=== PATIENT | male | born 1980 | race African-American/Black ===

== ENCOUNTER 2017-04-24 19:34 | Emergency (ER) | payer SELFPAY ==
[~2017-04-24] VITALS: Ht 185.4 cm; Wt 74.8 kg
[2017-04-24 19:49] VITALS: BP 108/56
[2017-04-24 22:06] LABS: Urine Bacteria NONE SEEN /hpf (None Seen); Urine Blood Negative /uL (Negative); Urine Mucus FEW (None Seen); Urine Specific Gravity 1.032 (1.001-1.035); Urine WBC <1 /hpf (0 - 3)
== END 2017-04-24 21:51 | disposition home or self-care (01) ==
LOC: ER 19:34
DX: J03.90 Acute tonsillitis, unspecified (principal); F12.10 Cannabis abuse, uncomplicated
CPT/HCPCS: 81001

== ENCOUNTER 2017-04-30 10:45 | Emergency (ER) | payer SELFPAY ==
[~2017-04-30] VITALS: Ht 185.4 cm; Wt 77.1 kg
[2017-04-30 11:24] VITALS: BP 110/62
== END 2017-04-30 12:08 | disposition home or self-care (01) ==
LOC: ER 10:45
DX: S80.01XA Contusion of right knee, initial encounter (principal); F12.10 Cannabis abuse, uncomplicated; W22.8XXA Striking against or struck by other objects, initial encounter; Y93.89 Activity, other specified; Y99.8 Other external cause status; Y92.89 Other specified places as the place of occurrence of the external cause
CPT/HCPCS: 73562

== ENCOUNTER 2017-05-09 12:05 | Emergency (ER) | payer SELFPAY ==
[~2017-05-09] VITALS: Ht 185.4 cm; Wt 81.6 kg
[2017-05-09 16:20] VITALS: BP 120/52
== END 2017-05-09 18:33 | disposition home or self-care (01) ==
LOC: ER 12:05
DX: J02.9 Acute pharyngitis, unspecified (principal); M54.2 Cervicalgia; F17.210 Nicotine dependence, cigarettes, uncomplicated
CPT/HCPCS: 71046

== ENCOUNTER 2018-10-31 16:49 | Emergency (ER) | payer MEDICAID ==
[~2018-10-31] VITALS: Ht 185.4 cm; Wt 79.4 kg
[2018-10-31 18:28] VITALS: BP 135/64
[2018-10-31] MEDS ORDERED: methylPREDNISolone SOD SUCC 125 MG/2 ML VL IM ONE (19:15)
[2018-10-31] MEDS ORDERED: IBUPROFEN 600 MG TAB PO ONE (19:15)
== END 2018-10-31 20:00 | disposition home or self-care (01) ==
LOC: ER 16:53
DX: J06.9 Acute upper respiratory infection, unspecified (principal); R42 Dizziness and giddiness; R51 Headache; R19.7 Diarrhea, unspecified; F12.10 Cannabis abuse, uncomplicated; M54.2 Cervicalgia
CPT/HCPCS: 96372; 99283; J2930

== ENCOUNTER 2019-10-15 19:32 | Emergency (ER) | payer MEDICAID ==
[~2019-10-15] VITALS: Ht 185.4 cm; Wt 79.4 kg
[2019-10-15 21:46] VITALS: BP 119/62
== END 2019-10-16 02:45 | disposition home or self-care (01) ==
LOC: ER 19:32
DX: U07.1 COVID-19 (principal); J06.9 Acute upper respiratory infection, unspecified
CPT/HCPCS: 71045; 87070; 87804; 87880; 99284; U0003

== ENCOUNTER 2020-09-27 21:36 | Emergency (ER) | payer MEDICAID ==
[~2020-09-27] VITALS: Ht 185.4 cm; Wt 79.4 kg
[2020-09-27 22:36] LABS: Hematocrit 42.9 % (41.0-53.0); Mean Corpuscular Hemoglobin 32.5 pg (28.0-32.0); Mean Corpuscular Volume 92.9 fL (80.0-100.0); Platelet Count (auto) 275 10^3/uL (140-450); Red Blood Cells 4.62 10^6/uL (4.5-5.90); Red Cell Distribution Width 13.3 % (11.8-14.3); White Blood Cell 6.7 10^3/uL (4.4-10.8)
[2020-09-27 22:38] LABS: Band Neutrophils % (manual) 0; Basophils % (manual) 0 (0.0-2.0); Metamyelocytes % 0
[2020-09-27 22:39] LABS: Blast Cells 0; Myelocytes % 0; Promyelocytes % 0
[2020-09-27 22:54] LABS: Albumin 3.9 g/dL (3.4-5.0); Calcium 8.7 mg/dL (8.5-10.1); Potassium 3.8 mmol/L (3.5-5.1)
[2020-09-27 22:57] LABS: BUN/Creatinine Ratio 14.6; Bilirubin, Total 0.2 mg/dL (0.2-1.0); CRP High Sensitivity 0.74 mg/dL (< 0.3); Total Protein 8.4 g/dL (6.4-8.2)
[2020-09-27 23:31] LABS: Eosinophils % (manual) 2 (0-7); Lymphocytes % (manual) 41 (10.0-50.0); Monocytes % (manual) 5 (0-12); Reactive Lymphocytes 2
[2020-09-28] MEDS ORDERED: cefTRIAXone SOD 1,000 MG VL IM ONE (00:45)
[2020-09-28] MEDS ORDERED: KETOROLAC TROMETH 60MG/2ML VIAL IM ONE (00:45)
[2020-09-28 06:42] VITALS: BP 111/78
== END 2020-09-28 06:51 | disposition home or self-care (01) ==
LOC: ER 21:36
DX: L08.9 Local infection of the skin and subcutaneous tissue, unspecified (principal); F17.210 Nicotine dependence, cigarettes, uncomplicated
CPT/HCPCS: 36415; 73700; 80053; 85007; 85027; 85049; 85652; 86141; 96372; 99284; J0696; J1885

== ENCOUNTER 2021-03-02 16:04 | Emergency (ER) | payer MEDICAID ==
[~2021-03-02] VITALS: Ht 185.4 cm; Wt 83.9 kg
[2021-03-02 21:18] VITALS: BP 121/71
== END 2021-03-03 04:41 | disposition home or self-care (01) ==
LOC: ER 16:04
DX: J06.9 Acute upper respiratory infection, unspecified (principal); J02.9 Acute pharyngitis, unspecified; F17.210 Nicotine dependence, cigarettes, uncomplicated; F12.10 Cannabis abuse, uncomplicated; Z20.822 Contact with and (suspected) exposure to COVID-19
CPT/HCPCS: 36415; 71045; 87426

== ENCOUNTER 2021-03-22 01:46 | Emergency (ER) | payer MEDICAID ==
[~2021-03-22] VITALS: Ht 185.4 cm; Wt 81.6 kg
[2021-03-22 03:44] LABS: Amphetamine Screen, Urine NEGATIVE (NEGATIVE); Barbiturate Scree,Urine NEGATIVE (NEGATIVE); Benzodiazephine Screen, Urine NEGATIVE (NEGATIVE); Cannabinoid Screen, Urine POSITIVE (NEGATIVE); Cocaine Screen, Urine POSITIVE (NEGATIVE); Opiate Scree,Urine NEGATIVE (NEGATIVE); Phencyclidine Screen, Urine NEGATIVE (NEGATIVE)
[2021-03-22] MEDS ORDERED: MORPHINE SULFATE 4 MG/ML SYR/VIAL IV ONE (03:45)
[2021-03-22 03:53] LABS: Urine Bacteria NONE SEEN /hpf (None Seen); Urine Blood Negative /uL (Negative); Urine Hyaline Cast FEW /lpf (0 - 2); Urine Specific Gravity 1.006 (1.001-1.035); Urine WBC <1 /hpf (0 - 3)
[2021-03-22 04:28] LABS: Basophils # (auto) 0 10 ^3/uL (0-0.2); Basophils % (auto) 0.1 % (0.0-2.0); Eosinophils # (auto) 0 10 ^3/uL (0-0.8); Hematocrit 49.7 % (41.0-53.0); Hemoglobin 16.6 g/dL (13.5-17.5); Lymphocytes # (auto) 0.8 10 ^3/uL (0.4-5.4); Lymphocytes % (auto) 10.7 % (10.0-50.0); Mean Corpuscular Hemoglobin 31.2 pg (28.0-32.0); Mean Corpuscular Hgb Conc. 33.3 g/dL (32.0-36.0); Mean Corpuscular Volume 93.8 fL (80.0-100.0); Monocytes # (auto) 0.2 10 ^3/uL (0-1.3); Monocytes % (auto) 2.4 % (0.0-12.0); Neutrophils # (auto) 6.9 10 ^3/uL (1.6-8.6); Neutrophils % (auto) 86.8 % (37.0-80.0); Nucleated Red Blood Cells % 0.1 %; White Blood Cell 7.9 10^3/uL (4.4-10.8)
[2021-03-22 04:45] LABS: Alanine Aminotransferase 33 U/L (16-61); Albumin 4.3 g/dL (3.4-5.0); Anion Gap 13 (5-15); Aspartate Aminotransferase 31 U/L (15-37); Blood Urea Nitrogen 7 mg/dL (7-18); Calcium 8.8 mg/dL (8.5-10.1); Carbon Dioxide 21 mmol/L (21-32); Chloride 111 mmol/L (98-107); GFR African American 126 mL/min; GFR Non-African American 104 mL/min; Glucose 103 mg/dL (74-106); Potassium 4.1 mmol/L (3.5-5.1); Sodium 145 mmol/L (136-145)
[2021-03-22] MEDS ORDERED: KETAMINE 50mg/ML 10ml Vial (500mg/10ml) IV ONE (04:45)
[2021-03-22 04:48] LABS: Alkaline Phosphatase 83 U/L (45-117); Bilirubin, Total 0.3 mg/dL (0.2-1.0); Total Protein 8.3 g/dL (6.4-8.2)
[2021-03-22 06:32] VITALS: BP 148/89
== END 2021-03-22 08:02 | disposition home or self-care (01) ==
LOC: EDBD 01:46 → ER 01:46 → EDUNIT# 01:46 → ER 07:40
DX: S82.852A Displaced trimalleolar fracture of left lower leg, initial encounter for closed fracture (principal); S82.842A Displaced bimalleolar fracture of left lower leg, initial encounter for closed fracture; V89.2XXA Person injured in unspecified motor-vehicle accident, traffic, initial encounter; Y93.89 Activity, other specified; Y92.89 Other specified places as the place of occurrence of the external cause; Y99.8 Other external cause status
CPT/HCPCS: 27808; 36415; 73610; 80053; 80307; 80320; 81001; 85025; 96374; 99152; 99285; J2270

== ENCOUNTER 2021-04-11 19:32 | Emergency (ER) | payer MEDICAID ==
[~2021-04-11] VITALS: Ht 185.4 cm; Wt 81.6 kg
[2021-04-11 21:20] VITALS: BP 119/70
[2021-04-11] MEDS ORDERED: HYDROcodone-ACET 10/325MG TAB PO ONE (23:30)
== END 2021-04-12 02:13 | disposition home or self-care (01) ==
LOC: ER 19:32
DX: S82.62XA Displaced fracture of lateral malleolus of left fibula, initial encounter for closed fracture (principal); F17.210 Nicotine dependence, cigarettes, uncomplicated; F12.10 Cannabis abuse, uncomplicated; V09.9XXA Pedestrian injured in unspecified transport accident, initial encounter; Y93.89 Activity, other specified; Y92.89 Other specified places as the place of occurrence of the external cause; Y99.8 Other external cause status
CPT/HCPCS: 29515